=== PATIENT | female | born 1985 | race African-American/Black ===

== ENCOUNTER 2018-05-13 12:38 | Emergency (ER) | payer SELFPAY, OTHER ==
[2018-05-13 15:30] LABS: ADD MAN DIFF? NO
[2018-05-13 15:34] LABS: URINE BLOOD (Dip) POC Negative (NEGATIVE); URINE GLUCOSE (Dip) POC Negative (NEGATIVE); URINE KETONES (Dip) POC Negative (NEGATIVE); URINE LEUKOCYTE EST (Dip) POC Negative (NEGATIVE); URINE NITRITE (Dip) POC Negative (NEGATIVE); URINE TOTAL PROTEIN POC Trace (NEGATIVE)
[2018-05-13 15:35] LABS: WHITE BLOOD COUNT 5.1 10^3/ul (4.8-10.8)
[2018-05-13 15:35] LABS: BASOPHILS % 0.4 % (0.0-2.0); EOSINOPHILS # 0.1 10^3/ul (0.0-0.5); EOSINOPHILS % 1.6 % (0.0-7.0); HEMATOCRIT 27.4 % (37.0-47.0); HEMOGLOBIN 8.1 g/dl (12.0-16.0); LYMPHOCYTES # 2.3 10^3/ul (0.8-2.9); LYMPHOCYTES % 45.1 % (15.0-51.0); MEAN CORPUSCULAR HEMOGLOBIN 22.7 pg (29.0-33.0); MEAN CORPUSCULAR HGB CONC 29.6 g/dl (32.0-37.0); MEAN CORPUSCULAR VOLUME 76.8 fl (82.0-101.0); MEAN PLATELET VOLUME 9.9 fl (7.4-10.4); MONOCYTE # 0.3 10^3/ul (0.3-0.9); MONOCYTES % 5.7 % (0.0-11.0); NEUTROPHIL # 2.4 10^3/ul (1.6-7.5); PLATELET COUNT 341 10^3/UL (140-415); RED BLOOD COUNT 3.57 10^6/ul (4.20-5.40); RED CELL DISTRIBUTION WIDTH 14.6 % (11.5-14.5); RETICULOCYTE COUNT # 0.053 X10^6 (0.020-0.110); RETICULOCYTE COUNT % 1.5 % (0.5-1.5); RETICULOCYTE RBC 3.57
[2018-05-13] MEDS: HYDROmorphONE 2 MG/ML SYG IM ×2 (15:43→18:13)
[2018-05-13] MEDS: ONDANSETRON (ODT) 4 MG TAB ODT ×2 (15:43→18:12)
[2018-05-13 15:55] LABS: ALANINE AMINOTRANSFERASE 20 IU/L (13-69); ALBUMIN 3.9 g/dl (3.3-4.9); ALBUMIN/GLOBULIN RATIO 1.18; ALKALINE PHOSPHATASE 74 IU/L (42-121); ANION GAP 7 (5-13); ASPARTATE AMINO TRANSFERASE 27 IU/L (15-46); BILIRUBIN,INDIRECT 0.2 mg/dl (0-1.1); BILIRUBIN,TOTAL 0.2 mg/dl (0.2-1.3); BLOOD UREA NITROGEN 12 mg/dl (7-20); CALCIUM 8.9 mg/dl (8.4-10.2); CARBON DIOXIDE 24 mmol/L (21-31); CHLORIDE 108 mmol/L (97-110); CREATININE 0.53 mg/dl (0.44-1.00); Estimated GFR > 60 mL/min (>60); GLUCOSE 75 mg/dl (70-220); POTASSIUM 3.7 mmol/L (3.5-5.1); SODIUM 139 mmol/L (135-144); TOTAL PROTEIN 7.2 g/dl (6.1-8.1)
[2018-05-13] MEDS: DIPHENHYDRAMINE 50 MG INJ IM (16:15)
[2018-05-13] MEDS: HYDROmorphONE 4 MG TAB PO (18:07)
[2018-05-13] MEDS: SOD CHLORIDE 0.9% 1,000 ML IV (18:30)
[2018-05-13] MEDS: DIPHENHYDRAMINE 25 MG CAP PO (19:34)
== END 2018-05-13 19:35 | disposition home or self-care (01) ==
LOC: E/R 12:38
DX: D57.419 Sickle-cell thalassemia, unspecified, with crisis (principal)
CPT/HCPCS: 80053; 81003; 81025; 85025; 85045; 86850; 86900; 86901; 99283

== ENCOUNTER 2018-05-19 18:34 | Emergency (ER) | payer SELFPAY ==
[2018-05-20] MEDS: ONDANSETRON (ODT) 4 MG TAB ODT (01:45)
[2018-05-20] MEDS: DIPHENHYDRAMINE 50 MG INJ IM (01:47)
[2018-05-20] MEDS: HYDROmorphONE 2 MG/ML SYG IM ×2 (01:47→04:54)
[2018-05-20 04:00] LABS: ADD MAN DIFF? NO
[2018-05-20 04:07] LABS: BASOPHILS % 0.5 % (0.0-2.0); EOSINOPHILS # 0.1 10^3/ul (0.0-0.5); EOSINOPHILS % 2.2 % (0.0-7.0); HEMATOCRIT 29.9 % (37.0-47.0); HEMOGLOBIN 8.9 g/dl (12.0-16.0); LYMPHOCYTES # 2.9 10^3/ul (0.8-2.9); LYMPHOCYTES % 46.1 % (15.0-51.0); MEAN CORPUSCULAR HEMOGLOBIN 22.9 pg (29.0-33.0); MEAN CORPUSCULAR HGB CONC 29.8 g/dl (32.0-37.0); MEAN CORPUSCULAR VOLUME 77.1 fl (82.0-101.0); MEAN PLATELET VOLUME 9.8 fl (7.4-10.4); MONOCYTE # 0.4 10^3/ul (0.3-0.9); MONOCYTES % 5.6 % (0.0-11.0); NEUTROPHIL # 2.8 10^3/ul (1.6-7.5); NEUTROPHILS % 45.1 % (39.0-77.0); PLATELET COUNT 339 10^3/UL (140-415); RED BLOOD COUNT 3.88 10^6/ul (4.20-5.40); RETICULOCYTE COUNT # 0.082 X10^6 (0.020-0.110); RETICULOCYTE COUNT % 2.1 % (0.5-1.5); RETICULOCYTE RBC 3.88
[2018-05-20 04:07] LABS: WHITE BLOOD COUNT 6.3 10^3/ul (4.8-10.8)
[2018-05-20 04:22] LABS: ANION GAP 10 (5-13); BLOOD UREA NITROGEN 14 mg/dl (7-20); CALCIUM 9.4 mg/dl (8.4-10.2); CARBON DIOXIDE 25 mmol/L (21-31); CHLORIDE 109 mmol/L (97-110); CREATININE 0.69 mg/dl (0.44-1.00); Estimated GFR > 60 mL/min (>60); GLUCOSE 110 mg/dl (70-220); LACTATE DEHYDROGENASE 455 IU/L (313-618); POTASSIUM 3.6 mmol/L (3.5-5.1); SODIUM 144 mmol/L (135-144)
== END 2018-05-20 05:55 | disposition home or self-care (01) ==
LOC: E/R 05-20 05:55
DX: M54.9 Dorsalgia, unspecified (principal); D57.419 Sickle-cell thalassemia, unspecified, with crisis
CPT/HCPCS: 80048; 83615; 85025; 85045; 96372; 99284-25

== ENCOUNTER 2018-05-23 09:21 | Inpatient (IN) | payer SELFPAY ==
[2018-05-23] MEDS: DIPHENHYDRAMINE 50 MG INJ IM (09:53)
[2018-05-23] MEDS: HYDROmorphONE 2 MG/ML SYG IM (09:53)
[2018-05-23] MEDS: ONDANSETRON (ODT) 4 MG TAB ODT (09:53)
[2018-05-23 11:45] LABS: ADD MAN DIFF? NO
[2018-05-23 11:47] LABS: ABNORMAL IP MESSAGE 1; BASOPHILS % 0.4 % (0.0-2.0); EOSINOPHILS # 0.1 10^3/ul (0.0-0.5); HEMATOCRIT 29.3 % (37.0-47.0); HEMOGLOBIN 8.4 g/dl (12.0-16.0); LYMPHOCYTES # 1.8 10^3/ul (0.8-2.9); MEAN CORPUSCULAR HGB CONC 28.7 g/dl (32.0-37.0); MEAN CORPUSCULAR VOLUME 76.9 fl (82.0-101.0); MEAN PLATELET VOLUME 9.8 fl (7.4-10.4); MONOCYTE # 0.2 10^3/ul (0.3-0.9); MONOCYTES % 3.9 % (0.0-11.0); NEUTROPHIL # 3.3 10^3/ul (1.6-7.5); NEUTROPHILS % 60.5 % (39.0-77.0); PLATELET COUNT 299 10^3/UL (140-415); RED BLOOD COUNT 3.81 10^6/ul (4.20-5.40); RED CELL DISTRIBUTION WIDTH 15.1 % (11.5-14.5); RETICULOCYTE COUNT # 0.066 X10^6 (0.020-0.110); RETICULOCYTE COUNT % 1.7 % (0.5-1.5); RETICULOCYTE RBC 3.81
[2018-05-23 11:47] LABS: WHITE BLOOD COUNT 5.4 10^3/ul (4.8-10.8)
[2018-05-23] MEDS: ONDANSETRON 4 MG INJ IV (11:49)
[2018-05-23] MEDS: DIPHENHYDRAMINE 50 MG INJ IV ×2 (11:49→14:02)
[2018-05-23 11:50] LABS: POSITIVE DIFF @See below
[2018-05-23] MEDS: HYDROmorphONE 1 MG/ML SYG IV (11:50)
[2018-05-23] MEDS: SOD CHLORIDE 0.9% 1,000 ML IV ×3 (11:50→21:57)
[2018-05-23] MEDS ORDERED: ONDANSETRON 4 MG INJ IV ×2 (12:00→12:30)
[2018-05-23] MEDS ORDERED: ACETAMINOPHEN 325 MG TAB PO (12:00)
[2018-05-23 12:07] LABS: ALANINE AMINOTRANSFERASE 16 IU/L (13-69); ALBUMIN 4.1 g/dl (3.3-4.9); ALBUMIN/GLOBULIN RATIO 1.17; ALKALINE PHOSPHATASE 87 IU/L (42-121); ANION GAP 8 (5-13); ASPARTATE AMINO TRANSFERASE 38 IU/L (15-46); BILIRUBIN,INDIRECT 0.2 mg/dl (0-1.1); BILIRUBIN,TOTAL 0.2 mg/dl (0.2-1.3); BLOOD UREA NITROGEN 16 mg/dl (7-20); CALCIUM 9.3 mg/dl (8.4-10.2); CARBON DIOXIDE 24 mmol/L (21-31); CHLORIDE 109 mmol/L (97-110); CREATININE 0.72 mg/dl (0.44-1.00); Estimated GFR > 60 mL/min (>60); GLUCOSE 83 mg/dl (70-220); POTASSIUM 3.9 mmol/L (3.5-5.1); SODIUM 141 mmol/L (135-144); TOTAL PROTEIN 7.6 g/dl (6.1-8.1)
[2018-05-23 12:14] LABS: INR 0.96; PROTIME 12.9 Sec (11.9-14.9)
[2018-05-23 12:15] LABS: PARTIAL THROMBOPLASTIN TIME 25.1 Sec (23.0-35.0)
[2018-05-23] MEDS ORDERED: NACL 0.9% 3 ML SYG IV (12:30)
[2018-05-23] MEDS ORDERED: HYDROmorphONE 1 MG/ML SYG IV (12:30)
[2018-05-23] MEDS: HYDROmorphONE 2 MG/ML SYG IV ×3 (14:46→22:54)
[2018-05-23] MEDS: FAMOTIDINE 20 MG TAB PO (21:57)
[2018-05-23] MEDS: SERTRALINE 50 MG TAB PO (21:58)
[2018-05-23] MEDS: traZODone 50 MG TAB PO (21:59)
[2018-05-23] MEDS: HYDROXYUREA 500 MG CAP PO (22:33)
[2018-05-23] MEDS: QUETIAPINE 100 MG TAB PO (22:53)
[2018-05-23] MEDS: DIPHENHYDRAMINE 50 MG CAP PO (22:54)
[2018-05-24] MEDS: HYDROmorphONE 2 MG/ML SYG IV ×5 (05:27→22:01)
[2018-05-24] MEDS: SOD CHLORIDE 0.9% 1,000 ML IV ×3 (05:27→21:57)
[2018-05-24] MEDS: DIPHENHYDRAMINE 50 MG CAP PO ×2 (05:27→17:07)
[2018-05-24 06:21] LABS: ADD MAN DIFF? NO
[2018-05-24 06:29] LABS: BASOPHILS % 0.4 % (0.0-2.0); EOSINOPHILS # 0.2 10^3/ul (0.0-0.5); EOSINOPHILS % 2.7 % (0.0-7.0); HEMATOCRIT 24.8 % (37.0-47.0); HEMOGLOBIN 7.2 g/dl (12.0-16.0); LYMPHOCYTES # 2.3 10^3/ul (0.8-2.9); LYMPHOCYTES % 40.9 % (15.0-51.0); MEAN CORPUSCULAR HEMOGLOBIN 22.8 pg (29.0-33.0); MEAN CORPUSCULAR VOLUME 78.5 fl (82.0-101.0); MEAN PLATELET VOLUME 9.9 fl (7.4-10.4); MONOCYTE # 0.4 10^3/ul (0.3-0.9); MONOCYTES % 6.9 % (0.0-11.0); NEUTROPHIL # 2.7 10^3/ul (1.6-7.5); NEUTROPHILS % 48.6 % (39.0-77.0); PLATELET COUNT 248 10^3/UL (140-415); RED BLOOD COUNT 3.16 10^6/ul (4.20-5.40)
[2018-05-24 06:29] LABS: WHITE BLOOD COUNT 5.5 10^3/ul (4.8-10.8)
[2018-05-24 06:46] LABS: ANION GAP 7 (5-13); BLOOD UREA NITROGEN 14 mg/dl (7-20); CALCIUM 8.7 mg/dl (8.4-10.2); CARBON DIOXIDE 23 mmol/L (21-31); CHLORIDE 114 mmol/L (97-110); CREATININE 0.64 mg/dl (0.44-1.00); Estimated GFR > 60 mL/min (>60); GLUCOSE 82 mg/dl (70-220); MAGNESIUM 1.9 mg/dl (1.7-2.5); POTASSIUM 4.1 mmol/L (3.5-5.1); SODIUM 144 mmol/L (135-144)
[2018-05-24] MEDS: FAMOTIDINE 20 MG TAB PO (08:51)
[2018-05-24] MEDS: FOLIC ACID 1 MG TAB PO (08:51)
[2018-05-24] MEDS: HYDROXYUREA 500 MG CAP PO ×2 (08:53→20:19)
[2018-05-24] MEDS: SERTRALINE 100 MG TAB PO (08:56)
[2018-05-24] MEDS: QUETIAPINE 100 MG TAB PO (12:25)
[2018-05-24] MEDS: SERTRALINE 50 MG TAB PO (20:18)
[2018-05-24] MEDS: ACETAMINOPHEN 325 MG TAB PO (20:18)
[2018-05-24] MEDS ORDERED: QUETIAPINE 100 MG TAB PO (23:00)
[2018-05-25] MEDS: HYDROmorphONE 2 MG/ML SYG IV ×6 (02:18→23:02)
[2018-05-25] MEDS: SOD CHLORIDE 0.9% 1,000 ML IV ×3 (05:51→20:14)
[2018-05-25 06:17] LABS: ADD MAN DIFF? NO
[2018-05-25 06:26] LABS: WHITE BLOOD COUNT 5.2 10^3/ul (4.8-10.8)
[2018-05-25 06:26] LABS: ABNORMAL IP MESSAGE 1; BASOPHILS % 0.4 % (0.0-2.0); EOSINOPHILS # 0.2 10^3/ul (0.0-0.5); EOSINOPHILS % 3.1 % (0.0-7.0); HEMATOCRIT 24.4 % (37.0-47.0); MEAN CORPUSCULAR HEMOGLOBIN 22.4 pg (29.0-33.0); MEAN CORPUSCULAR HGB CONC 28.7 g/dl (32.0-37.0); MEAN PLATELET VOLUME 9.8 fl (7.4-10.4); MONOCYTE # 0.3 10^3/ul (0.3-0.9); MONOCYTES % 5.2 % (0.0-11.0); NEUTROPHIL # 2.7 10^3/ul (1.6-7.5); NEUTROPHILS % 51.9 % (39.0-77.0); PLATELET COUNT 228 10^3/UL (140-415); RED BLOOD COUNT 3.13 10^6/ul (4.20-5.40)
[2018-05-25 06:47] LABS: POSITIVE DIFF @See below
[2018-05-25] MEDS ORDERED: QUETIAPINE 100 MG TAB PO (09:00)
[2018-05-25] MEDS: SERTRALINE 100 MG TAB PO (09:20)
[2018-05-25] MEDS: QUETIAPINE 100 MG TAB PO ×2 (09:21→21:30)
[2018-05-25] MEDS: FOLIC ACID 1 MG TAB PO (09:21)
[2018-05-25] MEDS: HYDROXYUREA 500 MG CAP PO ×2 (09:24→21:37)
[2018-05-25] MEDS: SERTRALINE 50 MG TAB PO (21:30)
[2018-05-25] MEDS: traZODone 50 MG TAB PO (21:30)
[2018-05-26] MEDS: SOD CHLORIDE 0.9% 1,000 ML IV (02:27)
[2018-05-26 06:21] LABS: ADD MAN DIFF? NO
[2018-05-26 06:38] LABS: BASOPHILS % 0.4 % (0.0-2.0); EOSINOPHILS # 0.2 10^3/ul (0.0-0.5); EOSINOPHILS % 3.6 % (0.0-7.0); HEMATOCRIT 25.6 % (37.0-47.0); HEMOGLOBIN 7.6 g/dl (12.0-16.0); LYMPHOCYTES % 45.6 % (15.0-51.0); MEAN CORPUSCULAR HEMOGLOBIN 22.8 pg (29.0-33.0); MEAN CORPUSCULAR HGB CONC 29.7 g/dl (32.0-37.0); MEAN CORPUSCULAR VOLUME 76.9 fl (82.0-101.0); MEAN PLATELET VOLUME 9.8 fl (7.4-10.4); MONOCYTE # 0.2 10^3/ul (0.3-0.9); MONOCYTES % 4.3 % (0.0-11.0); NEUTROPHIL # 2.1 10^3/ul (1.6-7.5); NEUTROPHILS % 45.9 % (39.0-77.0); PLATELET COUNT 254 10^3/UL (140-415); RED BLOOD COUNT 3.33 10^6/ul (4.20-5.40)
[2018-05-26 06:38] LABS: WHITE BLOOD COUNT 4.5 10^3/ul (4.8-10.8)
[2018-05-26] MEDS: QUETIAPINE 100 MG TAB PO (09:00)
[2018-05-26] MEDS: FOLIC ACID 1 MG TAB PO (10:01)
[2018-05-26] MEDS: HYDROmorphONE 2 MG/ML SYG IV ×2 (10:01→12:15)
[2018-05-26] MEDS: HYDROXYUREA 500 MG CAP PO (10:02)
[2018-05-26] MEDS: SERTRALINE 100 MG TAB PO (10:13)
== END 2018-05-26 14:25 | disposition home or self-care (01) | DRG 812 ==
LOC: E/R 09:21 → 2NE 11:34
DX: D57.00 Hb-SS disease with crisis, unspecified (principal); F41.9 Anxiety disorder, unspecified; E07.81 Sick-euthyroid syndrome
CPT/HCPCS: 36415; 80048; 80053; 81025; 83735; 84703; 85025; 85045; 85610; 85730; 93970; 96372; 99285-25

== ENCOUNTER 2018-06-04 08:56 | Emergency (ER) | payer SELFPAY ==
[2018-06-04] MEDS: HYDROmorphONE 2 MG/ML SYG IM ×2 (09:59→10:48)
== END 2018-06-04 11:37 | disposition home or self-care (01) ==
LOC: E/R 08:56
DX: D57.1 Sickle-cell disease without crisis (principal)
CPT/HCPCS: 96372; 99284-25

== ENCOUNTER 2018-06-11 18:31 | Inpatient (IN) | payer MEDICAID, OTHER ==
[2018-06-11] MEDS: ONDANSETRON 4 MG INJ IV (23:15)
[2018-06-11] MEDS: HYDROmorphONE 1 MG/ML SYG IV (23:16)
[2018-06-11] MEDS: SOD CHLORIDE 0.9% 1,000 ML IV (23:16)
[2018-06-11] MEDS ORDERED: DIPHENHYDRAMINE 50 MG INJ (23:23)
[2018-06-11 23:25] LABS: ADD MAN DIFF? NO
[2018-06-11 23:27] LABS: WHITE BLOOD COUNT 7.7 10^3/ul (4.8-10.8)
[2018-06-11 23:27] LABS: BASOPHILS % 0.3 % (0.0-2.0); EOSINOPHILS # 0.2 10^3/ul (0.0-0.5); EOSINOPHILS % 2.6 % (0.0-7.0); HEMATOCRIT 29.3 % (37.0-47.0); HEMOGLOBIN 8.6 g/dl (12.0-16.0); LYMPHOCYTES # 2.3 10^3/ul (0.8-2.9); LYMPHOCYTES % 29.6 % (15.0-51.0); MEAN CORPUSCULAR HEMOGLOBIN 22.4 pg (29.0-33.0); MEAN CORPUSCULAR HGB CONC 29.4 g/dl (32.0-37.0); MEAN CORPUSCULAR VOLUME 76.3 fl (82.0-101.0); MEAN PLATELET VOLUME 10.1 fl (7.4-10.4); MONOCYTE # 0.3 10^3/ul (0.3-0.9); MONOCYTES % 3.6 % (0.0-11.0); NEUTROPHIL # 4.9 10^3/ul (1.6-7.5); NEUTROPHILS % 63.5 % (39.0-77.0); PLATELET COUNT 316 10^3/UL (140-415); RED BLOOD COUNT 3.84 10^6/ul (4.20-5.40); RED CELL DISTRIBUTION WIDTH 15.3 % (11.5-14.5); RETICULOCYTE COUNT # 0.082 X10^6 (0.020-0.110); RETICULOCYTE COUNT % 2.1 % (0.5-1.5); RETICULOCYTE RBC 3.84
[2018-06-11 23:50] LABS: ALANINE AMINOTRANSFERASE 6 IU/L (13-69); ALBUMIN 4.3 g/dl (3.3-4.9); ALBUMIN/GLOBULIN RATIO 1.19; ALKALINE PHOSPHATASE 106 IU/L (42-121); ANION GAP 16 (5-13); ASPARTATE AMINO TRANSFERASE 29 IU/L (15-46); BILIRUBIN,INDIRECT 0.1 mg/dl (0-1.1); BILIRUBIN,TOTAL 0.1 mg/dl (0.2-1.3); BLOOD UREA NITROGEN 10 mg/dl (7-20); CALCIUM 9.3 mg/dl (8.4-10.2); CARBON DIOXIDE 25 mmol/L (21-31); CHLORIDE 101 mmol/L (97-110); CREATININE 0.61 mg/dl (0.44-1.00); Estimated GFR > 60 mL/min (>60); GLUCOSE 164 mg/dl (70-220); LACTATE DEHYDROGENASE 462 IU/L (313-618); LIPASE 129 U/L (23-300); POTASSIUM 3.8 mmol/L (3.5-5.1); SODIUM 142 mmol/L (135-144); TOTAL PROTEIN 7.9 g/dl (6.1-8.1)
[2018-06-12] MEDS: DIPHENHYDRAMINE 50 MG INJ IV ×2 (00:02→00:13)
[2018-06-12] MEDS: HYDROmorphONE 0.5 MG/0.5 ML SYG IV ×6 (00:13→21:23)
[2018-06-12] MEDS ORDERED: ACETAMINOPHEN 325 MG TAB PO (02:00)
[2018-06-12] MEDS ORDERED: DIPHENHYDRAMINE 50 MG CAP PO (02:00)
[2018-06-12] MEDS ORDERED: BISACODYL (EC) 5 MG TAB PO (02:00)
[2018-06-12] MEDS ORDERED: HYDROCODONE/APAP (5/325) TAB PO (02:00)
[2018-06-12] MEDS ORDERED: NACL 0.9% 3 ML SYG IV (02:00)
[2018-06-12] MEDS ORDERED: DOCUSATE SODIUM 100 MG CAP PO (02:00)
[2018-06-12] MEDS: SOD CHLORIDE 0.9% 1,000 ML IV ×3 (04:57→19:47)
[2018-06-12] MEDS: HYDROmorphONE 2 MG/ML SYG IV ×2 (04:57→20:35)
[2018-06-12 05:57] LABS: ADD MAN DIFF? NO
[2018-06-12 06:00] LABS: BASOPHIL # 0.1 10^3/ul (0.0-0.1); BASOPHILS % 0.6 % (0.0-2.0); EOSINOPHILS # 0.3 10^3/ul (0.0-0.5); HEMATOCRIT 26.9 % (37.0-47.0); LYMPHOCYTES # 3.6 10^3/ul (0.8-2.9); LYMPHOCYTES % 41.5 % (15.0-51.0); MEAN CORPUSCULAR HEMOGLOBIN 22.7 pg (29.0-33.0); MEAN CORPUSCULAR HGB CONC 29.7 g/dl (32.0-37.0); MEAN CORPUSCULAR VOLUME 76.4 fl (82.0-101.0); MEAN PLATELET VOLUME 9.9 fl (7.4-10.4); MONOCYTE # 0.5 10^3/ul (0.3-0.9); MONOCYTES % 5.7 % (0.0-11.0); NEUTROPHIL # 4.3 10^3/ul (1.6-7.5); NEUTROPHILS % 48.9 % (39.0-77.0); PLATELET COUNT 332 10^3/UL (140-415); RED BLOOD COUNT 3.52 10^6/ul (4.20-5.40); RED CELL DISTRIBUTION WIDTH 15.1 % (11.5-14.5)
[2018-06-12 06:00] LABS: WHITE BLOOD COUNT 8.7 10^3/ul (4.8-10.8)
[2018-06-12 06:39] LABS: ALANINE AMINOTRANSFERASE 11 IU/L (13-69); ALBUMIN 3.6 g/dl (3.3-4.9); ALBUMIN/GLOBULIN RATIO 1.05; ALKALINE PHOSPHATASE 94 IU/L (42-121); ANION GAP 11 (5-13); ASPARTATE AMINO TRANSFERASE 22 IU/L (15-46); BLOOD UREA NITROGEN 12 mg/dl (7-20); CALCIUM 8.6 mg/dl (8.4-10.2); CARBON DIOXIDE 25 mmol/L (21-31); CHLORIDE 108 mmol/L (97-110); CREATININE 0.81 mg/dl (0.44-1.00); Estimated GFR > 60 mL/min (>60); GLUCOSE 111 mg/dl (70-220); POTASSIUM 3.6 mmol/L (3.5-5.1); SODIUM 144 mmol/L (135-144)
[2018-06-12] MEDS: traZODone 50 MG TAB PO ×3 (06:46→21:23)
[2018-06-12] MEDS: HYDROXYUREA 500 MG CAP PO ×3 (06:47→21:27)
[2018-06-12] MEDS: DIPHENHYDRAMINE 50 MG CAP PO ×2 (07:16→16:57)
[2018-06-12] MEDS: ONDANSETRON 4 MG INJ IV ×2 (07:16→16:57)
[2018-06-12] MEDS: ENOXAPARIN 40 MG/0.4 ML SYG SC (09:00)
[2018-06-12] MEDS ORDERED: OSELTAMIVIR 75 MG CAP PO (09:00)
[2018-06-12] MEDS: HYDROmorphONE 1 MG/ML SYG IV (09:41)
[2018-06-12] MEDS: FOLIC ACID 1 MG TAB PO (09:50)
[2018-06-12] MEDS: SERTRALINE 100 MG TAB PO (09:51)
[2018-06-12] MEDS: QUETIAPINE 100 MG TAB PO ×2 (09:51→21:23)
[2018-06-12] MEDS ORDERED: HYDROmorphONE 2 MG TAB PO (21:00)
[2018-06-12] MEDS: SERTRALINE 50 MG TAB PO (21:23)
[2018-06-13] MEDS: HYDROmorphONE 0.5 MG/0.5 ML SYG IV ×2 (00:59→04:50)
[2018-06-13] MEDS: SOD CHLORIDE 0.9% 1,000 ML IV (01:45)
[2018-06-13 05:21] LABS: ADD MAN DIFF? NO
[2018-06-13 05:32] LABS: WHITE BLOOD COUNT 6.2 10^3/ul (4.8-10.8)
[2018-06-13 05:32] LABS: BASOPHILS % 0.5 % (0.0-2.0); EOSINOPHILS # 0.3 10^3/ul (0.0-0.5); HEMATOCRIT 24.6 % (37.0-47.0); HEMOGLOBIN 7.2 g/dl (12.0-16.0); LYMPHOCYTES # 2.4 10^3/ul (0.8-2.9); LYMPHOCYTES % 39.2 % (15.0-51.0); MEAN CORPUSCULAR HEMOGLOBIN 22.7 pg (29.0-33.0); MEAN CORPUSCULAR HGB CONC 29.3 g/dl (32.0-37.0); MEAN CORPUSCULAR VOLUME 77.6 fl (82.0-101.0); MEAN PLATELET VOLUME 10.4 fl (7.4-10.4); MONOCYTE # 0.4 10^3/ul (0.3-0.9); MONOCYTES % 6.4 % (0.0-11.0); NEUTROPHIL # 3.1 10^3/ul (1.6-7.5); NEUTROPHILS % 49.6 % (39.0-77.0); PLATELET COUNT 300 10^3/UL (140-415); RED BLOOD COUNT 3.17 10^6/ul (4.20-5.40); RED CELL DISTRIBUTION WIDTH 15.1 % (11.5-14.5)
[2018-06-13 05:53] LABS: ALANINE AMINOTRANSFERASE 14 IU/L (13-69); ALBUMIN 3.1 g/dl (3.3-4.9); ALBUMIN/GLOBULIN RATIO 1.03; ALKALINE PHOSPHATASE 73 IU/L (42-121); ANION GAP 6 (5-13); ASPARTATE AMINO TRANSFERASE 24 IU/L (15-46); BLOOD UREA NITROGEN 9 mg/dl (7-20); CALCIUM 8.8 mg/dl (8.4-10.2); CARBON DIOXIDE 26 mmol/L (21-31); CHLORIDE 109 mmol/L (97-110); CREATININE 0.61 mg/dl (0.44-1.00); Estimated GFR > 60 mL/min (>60); GLUCOSE 90 mg/dl (70-220); POTASSIUM 4.3 mmol/L (3.5-5.1); SODIUM 141 mmol/L (135-144); TOTAL PROTEIN 6.1 g/dl (6.1-8.1)
== END 2018-06-13 05:50 | disposition left against medical advice (07) | DRG 812 ==
LOC: E/R 18:31 → MS1 06-12 01:44
PROVIDERS: Family Medicine
DX: D57.00 Hb-SS disease with crisis, unspecified (principal); F41.9 Anxiety disorder, unspecified
CPT/HCPCS: 36415; 80053; 83615; 83690; 84703; 85025; 85045; 86850; 86900; 86901; 93005; 96374; 96375; 96376; 99285-25; G0378

== ENCOUNTER 2018-06-30 14:07 | Emergency (ER) | payer SELFPAY, OTHER, MEDICAID ==
[2018-06-30] MEDS: ONDANSETRON (ODT) 4 MG TAB ODT (15:42)
[2018-06-30] MEDS: HYDROmorphONE 2 MG/ML SYG IM (15:42)
== END 2018-06-30 16:22 | disposition home or self-care (01) ==
LOC: E/R 16:22
DX: G89.4 Chronic pain syndrome (principal); F11.29 Opioid dependence with unspecified opioid-induced disorder
CPT/HCPCS: 96372; 99284-25

== ENCOUNTER 2018-07-04 10:18 | Inpatient (IN) | payer MEDICAID ==
[2018-07-04 11:19] LABS: ADD MAN DIFF? NO
[2018-07-04 11:23] LABS: BASOPHILS % 0.5 % (0.0-2.0); EOSINOPHILS # 0.1 10^3/ul (0.0-0.5); EOSINOPHILS % 2.3 % (0.0-7.0); HEMATOCRIT 30.9 % (37.0-47.0); LYMPHOCYTES # 1.8 10^3/ul (0.8-2.9); LYMPHOCYTES % 31.8 % (15.0-51.0); MEAN CORPUSCULAR HGB CONC 29.1 g/dl (32.0-37.0); MEAN CORPUSCULAR VOLUME 75.4 fl (82.0-101.0); MEAN PLATELET VOLUME 10.2 fl (7.4-10.4); MONOCYTE # 0.3 10^3/ul (0.3-0.9); MONOCYTES % 4.9 % (0.0-11.0); NEUTROPHIL # 3.5 10^3/ul (1.6-7.5); NEUTROPHILS % 60.2 % (39.0-77.0); PLATELET COUNT 394 10^3/UL (140-415); RED CELL DISTRIBUTION WIDTH 15.3 % (11.5-14.5); RETICULOCYTE COUNT % 1.5 % (0.5-1.5)
[2018-07-04 11:23] LABS: WHITE BLOOD COUNT 5.8 10^3/ul (4.8-10.8)
[2018-07-04] MEDS: ONDANSETRON (ODT) 4 MG TAB ODT (11:25)
[2018-07-04] MEDS: DIPHENHYDRAMINE 50 MG INJ IM ×2 (11:26→14:03)
[2018-07-04] MEDS: HYDROmorphONE 2 MG/ML SYG IM ×2 (11:26→14:02)
[2018-07-04 11:38] LABS: ALANINE AMINOTRANSFERASE 13 IU/L (13-69); ALBUMIN 4.5 g/dl (3.3-4.9); ALBUMIN/GLOBULIN RATIO 1.18; ALKALINE PHOSPHATASE 94 IU/L (42-121); ANION GAP 12 (5-13); ASPARTATE AMINO TRANSFERASE 34 IU/L (15-46); BILIRUBIN,INDIRECT 0.3 mg/dl (0-1.1); BILIRUBIN,TOTAL 0.3 mg/dl (0.2-1.3); BLOOD UREA NITROGEN 10 mg/dl (7-20); CALCIUM 9.6 mg/dl (8.4-10.2); CARBON DIOXIDE 25 mmol/L (21-31); CHLORIDE 103 mmol/L (97-110); Estimated GFR > 60 mL/min (>60); GLUCOSE 80 mg/dl (70-220); POTASSIUM 3.9 mmol/L (3.5-5.1); SODIUM 140 mmol/L (135-144); TOTAL PROTEIN 8.3 g/dl (6.1-8.1)
[2018-07-04] MEDS ORDERED: HYDROmorphONE 2 MG/ML SYG IM (12:55)
[2018-07-04] MEDS ORDERED: HYDROCODONE/APAP (5/325) TAB PO (15:30)
[2018-07-04] MEDS ORDERED: ONDANSETRON 4 MG INJ IV (15:30)
[2018-07-04] MEDS ORDERED: HYDROmorphONE 1 MG/ML SYG IV (15:30)
[2018-07-04] MEDS ORDERED: ZOLPIDEM 5 MG TAB PO (15:30)
[2018-07-04] MEDS ORDERED: MAGNESIUM HYDROXIDE 30ML CUP PO (15:30)
[2018-07-04] MEDS ORDERED: DOCUSATE SODIUM 100 MG CAP PO (15:30)
[2018-07-04] MEDS ORDERED: ACETAMINOPHEN 325 MG TAB PO (15:30)
[2018-07-04] MEDS: SOD CHLORIDE 0.9% 1,000 ML IV (17:01)
[2018-07-04] MEDS: DIPHENHYDRAMINE 50 MG CAP PO (17:02)
[2018-07-04] MEDS: HYDROmorphONE 1 MG/ML SYG IV ×2 (17:02→21:05)
[2018-07-04] MEDS: DIPHENHYDRAMINE 50 MG INJ IV (22:08)
[2018-07-04] MEDS: QUETIAPINE 100 MG TAB PO (22:09)
[2018-07-04] MEDS: NACL 0.9% 3 ML SYG IV (22:09)
[2018-07-04] MEDS: traZODone 50 MG TAB PO (22:09)
[2018-07-04] MEDS: HYDROXYUREA 500 MG CAP PO (22:17)
[2018-07-05] MEDS: HYDROmorphONE 1 MG/ML SYG IV ×6 (00:43→20:41)
[2018-07-05] MEDS: SOD CHLORIDE 0.9% 1,000 ML IV ×3 (04:50→18:19)
[2018-07-05] MEDS: QUETIAPINE 100 MG TAB PO ×3 (09:00→22:34)
[2018-07-05] MEDS: traZODone 50 MG TAB PO ×3 (09:32→22:34)
[2018-07-05] MEDS: FOLIC ACID 1 MG TAB PO (09:32)
[2018-07-05] MEDS: HYDROXYUREA 500 MG CAP PO ×2 (09:35→20:42)
[2018-07-05 10:44] LABS: ADD MAN DIFF? NO
[2018-07-05 11:10] LABS: IRON 33 ug/dl (35-150)
[2018-07-05 11:12] LABS: ANION GAP 8 (5-13); BLOOD UREA NITROGEN 11 mg/dl (7-20); CALCIUM 8.7 mg/dl (8.4-10.2); CARBON DIOXIDE 24 mmol/L (21-31); CHLORIDE 109 mmol/L (97-110); CREATININE 0.65 mg/dl (0.44-1.00); Estimated GFR > 60 mL/min (>60); GLUCOSE 67 mg/dl (70-220); MAGNESIUM 1.8 mg/dl (1.7-2.5); PHOSPHORUS 4.2 mg/dl (2.5-4.9); POTASSIUM 4.4 mmol/L (3.5-5.1); SODIUM 141 mmol/L (135-144)
[2018-07-05 11:19] LABS: % IRON SATURATION 8 % SAT (22-52); TOTAL IRON BINDING CAPACITY 421 ug/dl (241-421)
[2018-07-05] MEDS: HYDROmorphONE 4 MG TAB PO ×3 (14:16→22:38)
[2018-07-05 14:52] LABS: ABNORMAL IP MESSAGE 1; BASOPHILS % 0.4 % (0.0-2.0); EOSINOPHILS # 0.2 10^3/ul (0.0-0.5); EOSINOPHILS % 4.1 % (0.0-7.0); HEMATOCRIT 28.4 % (37.0-47.0); HEMOGLOBIN 8.1 g/dl (12.0-16.0); LYMPHOCYTES # 2.5 10^3/ul (0.8-2.9); LYMPHOCYTES % 44.4 % (15.0-51.0); MEAN CORPUSCULAR HGB CONC 28.5 g/dl (32.0-37.0); MEAN PLATELET VOLUME 9.3 fl (7.4-10.4); MONOCYTE # 0.4 10^3/ul (0.3-0.9); MONOCYTES % 6.6 % (0.0-11.0); NEUTROPHIL # 2.5 10^3/ul (1.6-7.5); NEUTROPHILS % 44.3 % (39.0-77.0); PLATELET COUNT 264 10^3/UL (140-415); RED BLOOD COUNT 3.69 10^6/ul (4.20-5.40); RED CELL DISTRIBUTION WIDTH 15.5 % (11.5-14.5)
[2018-07-05 14:52] LABS: WHITE BLOOD COUNT 5.6 10^3/ul (4.8-10.8)
[2018-07-05 15:05] LABS: POSITIVE DIFF @See below
[2018-07-05] MEDS: DIPHENHYDRAMINE 50 MG INJ IV (22:31)
[2018-07-06] MEDS: HYDROmorphONE 1 MG/ML SYG IV ×4 (01:51→14:03)
[2018-07-06] MEDS: SOD CHLORIDE 0.9% 1,000 ML IV (05:56)
[2018-07-06] MEDS: HYDROmorphONE 4 MG TAB PO ×2 (08:12→12:08)
[2018-07-06] MEDS: QUETIAPINE 100 MG TAB PO (09:00)
[2018-07-06] MEDS: traZODone 50 MG TAB PO (09:00)
[2018-07-06] MEDS: FOLIC ACID 1 MG TAB PO (10:23)
[2018-07-06] MEDS: HYDROXYUREA 500 MG CAP PO (10:25)
== END 2018-07-06 14:28 | disposition left against medical advice (07) | DRG 812 ==
LOC: E/R 10:18 → MS1 14:53
DX: D57.00 Hb-SS disease with crisis, unspecified (principal)
CPT/HCPCS: 80048; 80053; 81025; 83540; 83735; 84100; 85025; 85045; 96372; 99285-25

== ENCOUNTER 2018-07-27 22:44 | Emergency (ER) | payer SELFPAY, MEDICAID ==
[2018-07-27] MEDS: HYDROmorphONE 2 MG/ML SYG IM (23:22)
[2018-07-27] MEDS: DIPHENHYDRAMINE 50 MG INJ IM (23:23)
[2018-07-27] MEDS: ONDANSETRON (ODT) 4 MG TAB ODT (23:23)
[2018-07-28] MEDS: HYDROmorphONE 2 MG/ML SYG IM (00:27)
== END 2018-07-28 00:37 | disposition home or self-care (01) ==
LOC: E/R 07-28 00:37
DX: D57.00 Hb-SS disease with crisis, unspecified (principal); Z87.891 Personal history of nicotine dependence
CPT/HCPCS: 96372; 99284-25

== ENCOUNTER 2018-07-29 12:39 | Emergency (ER) | payer SELFPAY | END 2018-07-29 15:00 | disposition left against medical advice (07) | LOC: E/R 15:00 | DX: Z53.21 Procedure and treatment not carried out due to patient leaving prior to being seen by health care provider (principal) ==

== ENCOUNTER 2018-07-30 08:51 | Emergency (ER) | payer SELFPAY ==
[2018-07-30] MEDS: HYDROmorphONE 1 MG/ML SYG IV (10:15)
[2018-07-30] MEDS: DIPHENHYDRAMINE 25 MG CAP PO (10:15)
[2018-07-30] MEDS: ONDANSETRON 4 MG INJ IV (10:15)
[2018-07-30] MEDS: SOD CHLORIDE 0.9% 1,000 ML IV (10:16)
[2018-07-30 10:20] LABS: ADD MAN DIFF? NO
[2018-07-30 10:22] LABS: WHITE BLOOD COUNT 6.2 10^3/ul (4.8-10.8)
[2018-07-30 10:22] LABS: BASOPHILS % 0.5 % (0.0-2.0); EOSINOPHILS # 0.1 10^3/ul (0.0-0.5); EOSINOPHILS % 2.2 % (0.0-7.0); HEMATOCRIT 31.7 % (37.0-47.0); HEMOGLOBIN 9.2 g/dl (12.0-16.0); LYMPHOCYTES # 2.2 10^3/ul (0.8-2.9); LYMPHOCYTES % 34.5 % (15.0-51.0); MEAN CORPUSCULAR HEMOGLOBIN 21.7 pg (29.0-33.0); MEAN CORPUSCULAR VOLUME 74.8 fl (82.0-101.0); MEAN PLATELET VOLUME 9.4 fl (7.4-10.4); MONOCYTE # 0.4 10^3/ul (0.3-0.9); MONOCYTES % 6.1 % (0.0-11.0); NEUTROPHIL # 3.5 10^3/ul (1.6-7.5); NEUTROPHILS % 56.5 % (39.0-77.0); PLATELET COUNT 437 10^3/UL (140-415); RED BLOOD COUNT 4.24 10^6/ul (4.20-5.40); RED CELL DISTRIBUTION WIDTH 16.5 % (11.5-14.5)
[2018-07-30 10:42] LABS: ANION GAP 9 (5-13); BLOOD UREA NITROGEN 16 mg/dl (7-20); CALCIUM 9.3 mg/dl (8.4-10.2); CARBON DIOXIDE 27 mmol/L (21-31); CHLORIDE 105 mmol/L (97-110); CREATININE 0.77 mg/dl (0.44-1.00); Estimated GFR > 60 mL/min (>60); GLUCOSE 89 mg/dl (70-220); POTASSIUM 4.3 mmol/L (3.5-5.1); SODIUM 141 mmol/L (135-144)
[2018-07-30] MEDS: HYDROmorphONE 0.5 MG/0.5 ML SYG IV (12:18)
[2018-07-30] MEDS ORDERED: SOD CHLORIDE 0.9% 1,000 ML IV (12:41)
[2018-07-30] MEDS ORDERED: NACL 0.9% 3 ML SYG IV (13:00)
[2018-07-30] MEDS ORDERED: ACETAMINOPHEN 325 MG TAB PO (13:00)
[2018-07-30] MEDS ORDERED: NITROGLYCERIN (SL) 0.4 MG TAB SL (13:00)
[2018-07-30] MEDS ORDERED: ALBUTEROL/IPRATROPIUM (NEB) 3 ML AMP HHN (13:00)
[2018-07-30] MEDS ORDERED: DIPHENHYDRAMINE 50 MG CAP PO (13:00)
[2018-07-30] MEDS ORDERED: HYDROCODONE/APAP (5/325) TAB PO (13:00)
[2018-07-30] MEDS ORDERED: LORAZEPAM 2 MG INJ IV (13:00)
[2018-07-30] MEDS ORDERED: DOCUSATE SODIUM 100 MG CAP PO (13:00)
[2018-07-30] MEDS ORDERED: HYDROmorphONE 4 MG TAB PO (13:00)
[2018-07-30] MEDS ORDERED: MAGNESIUM HYDROXIDE 30ML CUP PO (13:00)
[2018-07-30] MEDS ORDERED: ONDANSETRON 4 MG INJ IV (13:00)
[2018-07-30] MEDS ORDERED: hydrALAzine 20 MG INJ IV (13:00)
[2018-07-30 13:38] LABS: FREE T4 (FREE THYROXINE) 0.82 ng/dl (0.79-2.35)
[2018-07-30 13:54] LABS: SICKLE CELL SCREEN NEGATIVE (NEGATIVE)
[2018-07-30] MEDS ORDERED: HYDROXYUREA 500 MG CAP PO (14:30)
[2018-07-30] MEDS ORDERED: SERTRALINE 50 MG TAB PO (21:00)
[2018-07-31] MEDS ORDERED: FOLIC ACID 1 MG TAB PO (09:00)
[2018-07-31] MEDS ORDERED: SERTRALINE 100 MG TAB PO (09:00)
== END 2018-07-30 13:11 | disposition home or self-care (01) ==
LOC: E/R 13:11
DX: G89.4 Chronic pain syndrome (principal); F17.210 Nicotine dependence, cigarettes, uncomplicated; R40.2142 Coma scale, eyes open, spontaneous, at arrival to emergency department; R40.2362 Coma scale, best motor response, obeys commands, at arrival to emergency department; R40.2252 Coma scale, best verbal response, oriented, at arrival to emergency department
CPT/HCPCS: 36415; 80048; 84439; 85025; 85660; 96374; 96375; 96376; 99284-25